=== PATIENT | male | born 1970 | race Caucasian/White ===

== ENCOUNTER 2017-04-25 17:15 | Outpatient (CLI) | payer BC | END 2017-04-25 17:45 | disposition home or self-care (01) | LOC: SLEEP 17:15 | PROVIDERS: ATTEND Internal Medicine Critical Care Medicine | DX: G47.33 Obstructive sleep apnea (adult) (pediatric) (principal); R53.83 Other fatigue; R68.3 Clubbing of fingers; Z72.0 Tobacco use ==

== ENCOUNTER 2021-04-20 05:51 | Outpatient (CLI) | payer BC ==
[~2021-04-20] VITALS: Ht 177.8 cm; Wt 84.8 kg
== END 2021-04-21 13:37 | disposition home or self-care (01) ==
LOC: PREOP 05:51
PROVIDERS: ATTEND Internal Medicine
DX: Z01.818 Encounter for other preprocedural examination (principal)

== ENCOUNTER 2021-04-28 08:02 | Day surgery (SDC) | payer BC ==
[~2021-04-28] VITALS: Ht 178 cm; Wt 85.0 kg
[2021-04-28] MEDS ORDERED: LACTATED RINGERS 1,000 ML IV ONE (08:09)
[2021-04-28] MEDS ORDERED: LACTATED RINGERS 1,000 ML IV STA (08:14)
[2021-04-28] MEDS ORDERED: LIDOCAINE JELLY 2% 6 ML SYRINGE MM PRN (08:15)
[2021-04-28 08:30] VITALS: BP 131/83
--- NOTE | 2021-04-28 08:37 | Pre-Op Note & Conscious Sedat ---
Pre-Operative Progress Note H&P Reviewed The H&P was reviewed, patient examined and no changes noted. Date H&P Reviewed: Apr 28, 2021 Time H&P Reviewed: 08:36 Conscious Sedation Pre-Proced ASA Score 1 For ASA 3 and 4: Consider anesthesia and medical clearance. Also, for patients with a history of failed moderate sedation consider anesthesia. Airway Lungs Heart ASA score ASA 1: a normal healthy patient ASA 2: a patient with a mild systemic disease (mid diabetes, controlled hypertension, obesity ASA 3: a patient with a severe systemic disease that limits activity (angina, COPD, prior Myocardial infarction) ASA 4: a patient with an incapacitating disease that is a constant threat to life (CHF, renal failure) ASA 5: a moribund patient not expected to survive 24 hrs. (ruptured aneurysm) ASA 6: a declared brain- patient whose organs are being harvested. For emergent operations, add the letter E after the classification Mallampati Classification Grade 2 Sedation Plan Analgesia, Amnesia, Plan communicated to team members, Discussed options with patient/fam, Discussed risks with patient/fam The patient is an appropriate candidate to undergo the planned procedure, sedation, and anesthesia. The patient immediately re-assessed prior to indication. DESIRE GERMAIN MD Apr 28, 2021 08:37
[2021-04-28] MEDS ORDERED: ROSU20TA32 PO (08:44)
[2021-04-28] MEDS ORDERED: LEVO75CA5 PO (08:44)
[2021-04-28] MEDS ORDERED: PROPOFOL INJECTION 50 ML IV ONE (09:17)
[2021-04-28 09:40] VITALS: BP 102/58
[2021-04-28 09:45] VITALS: BP 102/66
[2021-04-28 09:50] VITALS: BP_SYST 112; BP_SYST 122; BP_DIAS 71; BP_DIAS 74
[2021-04-28 10:00] VITALS: BP 122/71
[2021-04-28 10:20] VITALS: BP 120/78
--- NOTE | 2021-04-28 10:48 | Anesthesia-General Post-Op ---
MAC Patient Condition Mental Status/LOC: Same as Preop Cardiovascular: Satisfactory Nausea/Vomiting: Absent Respiratory: Satisfactory Pain: Controlled Complications: Absent Post Op Complications Complications None Follow Up Care/Instructions Patient Instructions None needed. Anesthesiology Discharge Order Discharge Order Patient is doing well, no complaints, stable vital signs, no apparent adverse anesthesia problems. No complications reported per nursing. ROLANDA POTTS CRNA Apr 28, 2021 10:48
--- NOTE | 2021-04-28 14:50 | OPERATIVE REPORT ---
DATE OF SERVICE: COLONOSCOPY SUMMARY INDICATION FOR THE PROCEDURE: Screening colonoscopy. I am his primary care provider. DESCRIPTION OF PROCEDURE: The patient was placed in the left lateral decubitus position. Prior to undergoing colonoscopy, digital rectal evaluation was performed. Anal sphincter tone was normal and the perianal reflexes intact. Prostate is mildly enlarged and anodular on digital inspection. No other abnormalities were noted on digital inspection of anal canal or distal rectal vault. The colonoscope was inserted into the rectum and under direct visualization advanced to the cecum. The cecum was identified by identification by identification of the ileocecal valve, cecal strap, and appendiceal orifice. Photographic documentation was obtained. Quality of prep was good. FINDINGS: There was no evidence for internal or external hemorrhoids and the rectum was unremarkable. The sigmoid colon was unremarkable as well. A diminutive hyperplastic-appearing polyp 2 mm in size was noted in the proximal descending colon. It was biopsied and ablated with no subsequent blood loss. It was not submitted for histopathology. The remainder of the colonoscopy including transverse colon, hepatic flexure, ascending colon and cecum were unremarkable. ASSESSMENT: One diminutive hyperplastic appearing proximal descending colonic polyp was removed via hot forceps. This is otherwise normal colonoscopy to cecum. Digital evaluation of the prostate was compatible with mild BPH with no nodularity being noted. I would just advocate consideration for repeat screening in 10 years. Job ID: [id number] DocumentID: [id number] Dictated Date: 04/28/2021 10:19:26 Case Finisher Date: 04/28/2021 14:49:09 Dictated By: DESIRE GERMAIN MD
== END 2021-04-28 10:28 | disposition home or self-care (01) ==
LOC: ENDO 08:02
PROVIDERS: ATTEND Internal Medicine
DX: Z12.11 Encounter for screening for malignant neoplasm of colon (principal); K63.5 Polyp of colon; Z87.891 Personal history of nicotine dependence